=== PATIENT | male | born 1940 | race African-American/Black ===

== ENCOUNTER 2020-05-29 07:24 | Inpatient (IN) | payer OTHER ==
[2020-05-16 12:39] VITALS: BMI 27.1
[2020-05-29] MEDS ORDERED: CELECOXIB 200 MG CAPSULE PO ONE (07:52)
--- NOTE | 2020-05-29 07:58 | HP ---
Satellite [facility] - Chief Complaint Chief Complaint: right knee pain - Past Medical History Allergies/Adverse Reactions: Allergies Allergy/AdvReac Type Severity Reaction Status Date / Time No Known Drug Allergies Allergy Verified 05/16/20 12:26 - Current Medications Current Medications: Home Medications Medication Instructions Recorded Aspirin [Aspirin EC] 81 mg PO DAILY 05/16/20 Atorvastatin Ca [Lipitor] 10 mg PO DAILY 05/16/20 Hydralazine HCl 50 mg PO DAILY 05/16/20 Metoprolol Succinate 100 mg PO DAILY 05/16/20 Nifedipine [Procardia Xl] 30 mg PO DAILY 05/16/20 Torsemide 20 mg PO DAILY 05/16/20 Satellite Physical Exam - Physical Examination Vital Signs: Vital Signs Period Temp Pulse Resp BP Sys/Can Pulse Ox Last 24 Hr 98.7 F-98.7 F 77-77 15-15 131-131/83-83 98-98 General Appearance: Well Nourished, Well Developed, Alert & Oriented x3 ENT: Clear Lung: Normal air movement Extremities: Other (right knee- +Swelling, + ttp, decr rom, nvi, xrays show grade 4 tricompartmental djd) Neurological: Intact, Alert, Oriented Satellite Impression/Plan - Impression/Plan Impression: right knee djd Operative Procedure: right miriam tkr Date to be Performed: 05/29/20
[2020-05-29] MEDS ORDERED: MIDAZOLAM HCL 2 MG/2 ML SINGLE DOSE VIAL ONE ×2 (08:43→10:56)
[2020-05-29] MEDS ORDERED: BUPIVACAINE LIPOSOME/PF (EXPAREL) 266 MG/20 ML VIAL ONE (08:43)
[2020-05-29] MEDS ORDERED: BUPIVACAINE HCL/PF 0.5% (5 MG/ML) 30 ML VIAL IJ ONE (08:44)
[2020-05-29] MEDS ORDERED: ceFAZolin SODIUM 1 GM VIAL ONE ×2 (08:45→10:10)
[2020-05-29] MEDS ORDERED: VANCOMYCIN 1,000 MG VIAL (RESTRICTED TO ID ONLY) ONE (08:55)
[2020-05-29] MEDS ORDERED: TRANEXAMIC ACID 1000 MG/10 ML VIAL IVPUSH ONE (09:30)
[2020-05-29] MEDS ORDERED: CEFAZOLIN 2 GM in DEXTROSE 5%-WATER - 50 ML IVPB ONE (09:30)
[2020-05-29] MEDS ORDERED: MAGNESIUM HYDROX 2400MG/30ML ORAL SUSPENSION 30 ML CUP PO PRN (09:42)
[2020-05-29] MEDS ORDERED: MAG HYDROX/AL HYDROX/SIMETH 30 ML UNIT-DOSE CUP PO PRN (09:42)
[2020-05-29] MEDS ORDERED: ONDANSETRON 4 MG/2 ML VIAL IVPUSH PRN (09:42)
[2020-05-29] MEDS ORDERED: LACTATED RINGERS SOLUTION 1,000 ML IV SCH (09:45)
[2020-05-29] MEDS ORDERED: TRANEXAMIC ACID 1000 MG/10 ML VIAL ONE ×2 (10:08→11:17)
[2020-05-29] MEDS ORDERED: EPHEDRINE SULFATE/0.9% NACL/PF 50 MG/10 ML SYRINGE NR ONE (10:09)
--- NOTE | 2020-05-29 11:43 | OP ---
Operative Note - Note: Operative Date: 05/29/20 (fanny) Pre-Operative Diagnosis: right knee djd Operation: right miriam tkr Post-Operative Diagnosis: Same as Pre-op Surgeon: Elbert Grullon Sample Builder: Higinio Porter Anesthesiologist/SLICER MACHINE OPERATOR: Tadeo Dickson Anesthesia: Spinal, Local Specimens Removed: bone fragments Estimated Blood Loss (mls): 150
[2020-05-29] MEDS ORDERED: oxyCODONE HCL 5 MG TABLET PO PRN (12:45)
[2020-05-29] MEDS ORDERED: ACETAMINOPHEN 325 MG TABLET (FP) ONE (13:07)
[2020-05-29] MEDS ORDERED: ACETAMINOPHEN 325 MG TABLET (FP) PO SCH (15:00)
[2020-05-29] MEDS: PANTOPRAZOLE 40 MG TABLET PO SCH (15:23)
[2020-05-29] MEDS: CEFAZOLIN 2 GM/D5W 2 GM/50 ML ML IVPB SCH (18:01)
[2020-05-29] MEDS: ACETAMINOPHEN 325 MG TABLET (FP) PO SCH (19:37)
[2020-05-29] MEDS: oxyCODONE HCL 5 MG TABLET PO PRN (22:14)
[2020-05-29] MEDS: SENNOSIDES/DOCUSATE COMBO (SENNA PLUS) TABLET (UD) PO SCH (22:15)
[2020-05-30] MEDS: CEFAZOLIN 2 GM/D5W 2 GM/50 ML ML IVPB SCH (01:03)
[2020-05-30] MEDS: ACETAMINOPHEN 325 MG TABLET (FP) PO SCH ×4 (01:04→21:18)
[2020-05-30 08:38] LABS: HEMATOCRIT 30.7 % (35.4-49); HEMOGLOBIN 10.4 GM/dl (11.7-16.9); MCH 26.9 pg (25.7-33.7); MCHC 33.8 g/dl (32.0-35.9); MEAN CELL VOLUME 79.7 fl (80-96); MEAN PLT VOLUME 9.5 fl (7.5-11.1); PLATELET COUNT 187 K/MM3 (134-434); RBC 3.85 M/mm3 (4.00-5.60); RDW 13.4 % (11.9-15.9); WHITE BLOOD COUNT 9.5 K/mm3 (4.0-10.8)
[2020-05-30] MEDS: MULTIVITAMINS (DAILY MVI) TABLET (FP) PO SCH (09:18)
[2020-05-30] MEDS: NIFEdipine E.R. 30 MG TABLET PO SCH (09:18)
[2020-05-30] MEDS: hydrALAZINE HCL 50 MG TABLET (FP) PO SCH (09:18)
[2020-05-30] MEDS: ASPIRIN 325 MG TABLET PO SCH (09:18)
[2020-05-30] MEDS: ATORVASTATIN CA 10 MG TABLET (FP) PO SCH (09:18)
[2020-05-30] MEDS: PANTOPRAZOLE 40 MG TABLET PO SCH (09:18)
[2020-05-30] MEDS: TORSEMIDE 20 MG TABLET (FP) PO SCH (09:18)
[2020-05-30] MEDS: SENNOSIDES/DOCUSATE COMBO (SENNA PLUS) TABLET (UD) PO SCH ×2 (09:19→21:18)
[2020-05-30] MEDS: oxyCODONE HCL 5 MG TABLET PO PRN (09:20)
--- NOTE | 2020-05-30 09:23 | PN ---
Progress Note (short form) - Note Progress Note: Ortho Pt seen and examined s/p right miriam tkr pod #1 Selected Entries 05/30/20 09:16 Temperature 98.1 F Pulse Rate 80 Respiratory 16 Rate Blood Pressure 179/78 H Laboratory Tests 05/30/20 07:05 WBC 9.5 Hgb 10.4 L Hct 30.7 L Plt Count 187 dressing c/d/i, calf soft, nt nvi a/p PT dvt ppx pain control d/c home tomorrow if stable
--- NOTE | 2020-05-30 10:18 | PN ---
Progress Note, Physician Chief Complaint: s/p right knee TKA STACEY under spinal anesthesia History of Present Illness: post op day one with peripheral nerve block for post op pain control - Current Medication List Current Medications: Active Medications Acetaminophen (Tylenol -) [address] [facility] Stop: 06/01/20 19:59 Last Admin: 05/30/20 09:19 Dose: 650 mg Documented by: Al Hydroxide/Mg Hydroxide (Mylanta Oral Suspension -) 30 ml PO Q4H PRN PRN Reason: DYSPEPSIA Aspirin (Asa -) 325 mg PO DAILY@0800 [facility] Last Admin: 05/30/20 09:18 Dose: 325 mg Documented by: Atorvastatin Calcium (Lipitor -) [address] [facility] Last Admin: 05/30/20 09:18 Dose: 10 mg Documented by: Hydralazine HCl (Apresoline -) [address] [facility] Last Admin: 05/30/20 09:18 Dose: 50 mg Documented by: Magnesium Hydroxide (Milk Of Magnesia -) 30 ml PO PRN PRN PRN Reason: CONSTIPATION Metoprolol Succinate (Toprol Xl -) [address] [facility] Last Admin: 05/30/20 09:18 Dose: 100 mg Documented by: Multivitamins/Minerals/Vitamin C (Tab-A-Vit -) [address] [facility] Last Admin: 05/30/20 09:18 Dose: 1 tab Documented by: Nifedipine (Procardia Xl -) [address] [facility] Last Admin: 05/30/20 09:18 Dose: 30 mg Documented by: Ondansetron HCl (Zofran Injection) 4 mg IVPUSH Q6H PRN PRN Reason: NAUSEA Oxycodone HCl (Roxicodone -) 5 mg PO Q3H PRN PRN Reason: PAIN LEVEL 1-5 Last Admin: 05/30/20 09:20 Dose: 5 mg Documented by: Oxycodone HCl (Roxicodone -) 10 mg PO Q3H PRN PRN Reason: PAIN LEVEL 6-10 Pantoprazole Sodium (Protonix -) [address] [facility] Last Admin: 05/30/20 09:18 Dose: 40 mg Documented by: Senna/Docusate Sodium (Pericolace -) [address] [facility] Last Admin: 05/30/20 09:19 Dose: 2 tablet Documented by: Torsemide (Demadex -) 20 mg PO DAILY [facility] M Last Admin: 05/30/20 09:18 Dose: 20 mg Documented by: - Objective Vital Signs: Vital Signs Temperature 98.1 F 05/30/20 09:16 Pulse Rate 80 05/30/20 09:16 Respiratory Rate 16 05/30/20 09:16 Blood Pressure 179/78 H 05/30/20 09:16 O2 Sat by Pulse Oximetry (%) 99 05/30/20 09:16 Constitutional: Yes: Well Nourished Cardiovascular: Yes: WNL Respiratory: Yes: WNL Gastrointestinal: Yes: WNL Labs: CBC, BMP 05/30/20 07:05 Assessment/Plan no adverse anesthetic reactions, post op pain controlled, dept of anesthesiology will sign off care at this time
--- NOTE | 2020-05-30 19:45 | SPEC ---
DATE OF OPERATION: 05/29/2020 PREOPERATIVE DIAGNOSIS: Degenerative joint disease, right knee. POSTOPERATIVE DIAGNOSIS: Degenerative joint disease, right knee. PROCEDURE: Right total knee replacement with robotic-assisted navigation (MAKOplasty). SURGICAL ATTENDING: Elbert Grullon MD. ACCESSORIES REPAIRER: ALTON Siegel. ANESTHESIA: Regional and spinal. CLOSURE: A cementless Triathlon knee system with a 3 femur, a 4 tibia, an 11 polyethylene, a 35 patella. No. 1 Vicryl, fascia; 0 and 2-0 for subcutaneous; and 3-0 Monocryl subcuticular with skin glue for skin; 4-0 undyed Vicryl for pin sites. ESTIMATED BLOOD LOSS: Less than 100 mL. COMPLICATIONS: None. CONDITION: To recovery room in stable condition. DESCRIPTION OF OPERATIVE PROCEDURE: Patient was taken to the operating room on May 29, 2020. Regional and spinal anesthesia was administered by the anesthesiologist. IV Kefzol was administered prophylactically prior to the case as well as TXA. The right lower extremity was prepped and draped in the usual sterile fashion. The midline 10- to 12-cm longitudinal incision was made. Hemostasis was achieved with Bovie cautery. Sharp dissection was carried down to the extensor mechanism which was perform the procedure. Medial parapatellar arthrotomy was then performed, leaving a cuff of tissue for later closure. The patella was inverted and the knee was flexed up. The fat pad was excised. Subperiosteal dissection was done on the anteromedial proximal tibia until the knee was able to be brought forward. This was facilitated by taking the ACL, PCL and medial and lateral menisci. Checkpoints were placed in both the femur and in the tibia. Two parallel threaded pins were drilled superior to the knee joint through the already made incision from anterior to posterior just going through the anterior cortex but just engaging but not going through the posterior cortex. Two threaded pins were drilled through 2 small stab incisions in parallel fashion 1 handbreadth below the tibial tubercle through the anterior cortex of the tibia and engaging but not going through the posterior cortex. Both sets of pins were attached to navigation arrays for the STACEY system. The knee was then registered with the navigation system with center of rotation of the hip, medial and lateral malleoli and multiple sites both on the tibia and on the femur. Confirmation of excellent registration was confirmed by "popping the bubbles." At this time, the knee was thoroughly inspected to remove all osteophytes around the knee. The knee was then tensioned in varus/valgus at both full extension and at 90 degrees of flexion to ascertain our gaps. The virtual position of the components was optimized to ensure equal gaps throughout the range of motion. Once this was performed, the robot was brought into the field, was registered. The bone was cut as per the specifications on both the tibia and on the femur. The box cuts were then made as well. Excellent trial stability was obtained on the femur. The tibial baseplate was allowed to "find itself" and then was clipped into place. Confirmation of excellent external rotation of that component was confirmed by the navigation device as well.The patella was calibered for thickness and cut at the appropriate level. The appropriate lollipop was used to drill 3 holes in the patella and a trial asymmetric patellar button was applied. The knee was taken through a range of motion and found to have excellent stability from full extension to full flexion with excellent tracking of the patella. The trial components were then removed. The lug holes were drilled in the femur. The cementless keel was punched in the tibia. The real Press-Fit components were malleted into place, first with the tibia and then with the femur, and then the patella was crimped into place as well. The real polyethylene liner was then clipped into place. Range of motion, stability and tracking were as described earlier. The knee was thoroughly irrigated with copious amounts of irrigation. Vancomycin powder was placed inside the joint. The medial parapatellar arthrotomy was then closed using No. 1 Vicryl interrupted suture. Post closure of the arthrotomy, the knee was taken through a range of motion and found to have no undue tension on the repair. The subcutaneous was then pulse antibiotic irrigated, closed with 0 and 2-0 Vicryl and 3-0 Monocryl subcuticular with skin glue for the skin. Prior to closure, the checkpoints were removed as were the threaded pins. The tibial pin sites were closed with 4-0 undyed Vicryl. A sterile pressure Aquacel dressing was applied. No tourniquet was used during the case. The total blood loss was approximately 100 mL. No complication. Patient was transferred to recovery in stable condition. [place] [id number]
[2020-05-31] MEDS: ACETAMINOPHEN 325 MG TABLET (FP) PO SCH ×2 (02:24→08:30)
[2020-05-31 06:44] VITALS: PULSE 83
[2020-05-31 08:21] LABS: HEMATOCRIT 33.6 % (35.4-49); HEMOGLOBIN 11.2 GM/dl (11.7-16.9); MCH 26.7 pg (25.7-33.7); MCHC 33.3 g/dl (32.0-35.9); MEAN PLT VOLUME 9.6 fl (7.5-11.1); PLATELET COUNT 186 K/MM3 (134-434); RDW 14.1 % (11.9-15.9); WHITE BLOOD COUNT 11.8 K/mm3 (4.0-10.8)
[2020-05-31] MEDS: ASPIRIN 325 MG TABLET PO SCH (08:29)
[2020-05-31 09:24] VITALS: BP 174/68; TEMP 99.1
[2020-05-31] MEDS: MULTIVITAMINS (DAILY MVI) TABLET (FP) PO SCH (10:25)
[2020-05-31] MEDS: TORSEMIDE 20 MG TABLET (FP) PO SCH (10:26)
[2020-05-31] MEDS: SENNOSIDES/DOCUSATE COMBO (SENNA PLUS) TABLET (UD) PO SCH (10:26)
[2020-05-31] MEDS: NIFEdipine E.R. 30 MG TABLET PO SCH (10:26)
[2020-05-31] MEDS: hydrALAZINE HCL 50 MG TABLET (FP) PO SCH (10:26)
[2020-05-31] MEDS: PANTOPRAZOLE 40 MG TABLET PO SCH (10:26)
[2020-05-31] MEDS: ATORVASTATIN CA 10 MG TABLET (FP) PO SCH (10:26)
[2020-05-31] MEDS ORDERED: PT OWN MED DRAWER 7, Y5N ONE (12:27)
--- NOTE | 2020-06-01 18:16 | PATH ---
Surgical Pathology Report Patient Name: NELLIE HOFF Med. Rec. #: [id number] /Age/Gender: 1940 (Age: 79) / M Account: [id number] Location: [facility] MED-SURG Taken: 05/29/2020 Received: 05/29/2020 Reported: 06/01/2020 Physicians: Elbert Grullon M.D. Specimen(s) Received RIGHT KNEE BONE SHAVINGS Clinical History Right knee osteoarthritis Final Diagnosis KNEE BONE SHAVINGS, RIGHT, TOTAL KNEE REPLACEMENT: DEGENERATIVE JOINT DISEASE. Electronically Signed Maricarmen Guzman M.D. Gross Description Received in formalin labeled "right knee bone shavings," is an 11.0 x 11.0 x 3.0 cm aggregate of multiple portions of bone and soft tissue, consistent with knee bones. There are multiple areas of eburnation present, measuring up to 2.2 cm in greatest dimension. The remaining articular surfaces are hoang-yellow and diffusely granular. The underlying trabecular bone is yellow and hard. Gold And Silver Assayer sections are submitted in one cassette, following decalcification. /05/30/2020 [facility]05/30/2020
== END 2020-05-31 12:45 | disposition home health service (06) | DRG 470 ==
LOC: FM/S 07:24
PROVIDERS: ADMIT Orthopaedic Surgery; ATTEND Orthopaedic Surgery
PROC: 8E0Y0CZ Robotic Assisted Procedure of Lower Extremity, Open Approach (ICD-10-PCS; 2020-05-29)
PROC: 0SRC0JA Replacement of Right Knee Joint with Synthetic Substitute, Uncemented, Open Approach (ICD-10-PCS; principal; 2020-05-29 10:25)
DX: M17.11 Unilateral primary osteoarthritis, right knee (principal)
CPT/HCPCS: 36415; 73560-TC-RT-FY; 85027; 88304-TC; 94760; 97010-GP; 97116-GP; 97162-GP

== ENCOUNTER 2020-12-21 04:50 | Day surgery (SDC) | payer OTHER ==
[2020-12-18 19:01] VITALS: BMI 27.4
[2020-12-21] MEDS ORDERED: PAPAVERINE HCL 30 MG/1 ML 10 ML VIAL NR ONE (13:15)
[2020-12-21] MEDS ORDERED: HEPARIN NA (PORCINE) 5,000 UNITS/ML 1ML VIAL ONE (13:15)
[2020-12-21] MEDS ORDERED: ceFAZolin SODIUM 1 GM VIAL ONE (13:42)
[2020-12-21] MEDS ORDERED: PROPOFOL 20 ML ONE (13:42)
[2020-12-21] MEDS ORDERED: MIDAZOLAM HCL 2 MG/2 ML SINGLE DOSE VIAL ONE ×2 (13:43)
[2020-12-21] MEDS ORDERED: ceFAZolin SODIUM 1 GM VIAL IVPB ONE (13:44)
[2020-12-21] MEDS ORDERED: LIDOCAINE HCL 1%, 10 MG/ML (50 mL VIAL) NR ONE (13:51)
[2020-12-21] MEDS ORDERED: POVIDONE-IODINE OINTMENT 10% - 28.4 GM TUBE ONE (14:03)
[2020-12-21] MEDS ORDERED: ONDANSETRON 4 MG/2 ML VIAL IVPUSH PRN (14:55)
[2020-12-21] MEDS ORDERED: PROMETHAZINE HCL 25 MG/1 ML VIAL IVPUSH PRN (14:55)
[2020-12-21] MEDS ORDERED: oxyCODONE HCL 5 MG TABLET PO PRN (14:55)
[2020-12-21 17:03] VITALS: BP 127/55; PULSE 61; TEMP 97
== END 2020-12-21 17:00 | disposition home or self-care (01) ==
LOC: JASU-SURG 04:50
PROVIDERS: ATTEND Surgery
PROC: 03180ZD Bypass Left Brachial Artery to Upper Arm Vein, Open Approach (ICD-10-PCS; principal; 2020-12-21 13:00)
DX: I12.0 Hypertensive chronic kidney disease with stage 5 chronic kidney disease or end stage renal disease (principal); N18.5 Chronic kidney disease, stage 5
CPT/HCPCS: 94760; J1644

== ENCOUNTER 2021-05-03 04:46 | Day surgery (SDC) | payer OTHER ==
[2021-05-02 08:39] VITALS: BMI 27.4
[~2021-05-03 04:46] MED LIST: BUPIVACAINE HCL/PF 0.5% (5MG/ML) 10 ML VIAL IJ ONE
[2021-05-03] MEDS ORDERED: BUPIVACAINE HCL/PF 0.5% (5MG/ML) 10 ML VIAL IJ ONE (15:57)
[2021-05-03] MEDS ORDERED: HEPARIN NA (PORCINE) 1,000 UNITS/ML 10ML M-D VIAL SQ ONE (16:37)
[2021-05-03] MEDS ORDERED: ACETAMINOPHEN 1000 MG/100 ML VIAL (NON FORMULARY) IVPB ONE (18:56)
[2021-05-03] MEDS ORDERED: ACETAMINOPHEN INJECTION 100 ML IVPB ONE (19:27)
[2021-05-03 20:14] VITALS: BP 182/81; PULSE 60; TEMP 97.8
== END 2021-05-03 20:00 | disposition home or self-care (01) ==
LOC: JASU-SURG 04:46
PROVIDERS: ATTEND Surgery
PROC: 0WQF4ZZ Repair Abdominal Wall, Percutaneous Endoscopic Approach (ICD-10-PCS; 2021-05-03)
PROC: 0WHG43Z Insertion of Infusion Device into Peritoneal Cavity, Percutaneous Endoscopic Approach (ICD-10-PCS; principal; 2021-05-03 15:30)
DX: I12.0 Hypertensive chronic kidney disease with stage 5 chronic kidney disease or end stage renal disease (principal); N18.6 End stage renal disease; Z99.2 Dependence on renal dialysis; K42.0 Umbilical hernia with obstruction, without gangrene
CPT/HCPCS: 94760; J0131; J1644